=== PATIENT | male | born 1980 | race Caucasian/White ===

== ENCOUNTER 2018-02-25 04:18 | Emergency (ER) | payer MEDICAID, OTHER ==
[~2018-02-25] VITALS: Ht 172.7 cm; Wt 62.6 kg
[~2018-02-25 04:18] MED LIST: ASPI-587 PO; CEPH250T PO; CYCL10TA9 PO; HYDR-229 PO; NAPR-243 PO; NF-ESOM40C PO; PERM60CR10 TOP; TRAM50TA2 PO; TRM50T PO
--- OUTSIDE RECORDS SUMMARY | 2018-02-25 04:27 | XMS REPORT | Continuity of Care Document ---
Author Author Count Includes [facility] Address Unknown Phone Unavailable Allergies Active Description Code Type Severity Reaction Onset Reported/Identified Relationship to Patient Clinical Status Yes No Known Drug Allergies [id number] Drug Allergy Unknown N/A 10/15/2012 Yes cyclobenzaprine 10 mg tablet Drug Allergy N/A N/A 08/23/2014 Medications There is no data. Problems Date Dx Coded Attending Type Code Diagnosis Diagnosed By 12/02/2012 YT WORTHINGTON MD Ot 300.00 12/02/2012 TY WORTHINGTON MD Ot 305.00 12/02/2012 TY WORTHINGTON MD Ot 308.9 12/02/2012 TY WORTHINGTON MD Ot 786.59 09/26/2013 DEE PHD, LANDRY Jones 304.80 SA POLYSUB DEP 09/26/2013 BRITNEY LAND APRN 304.80 SA POLYSUB DEP 09/26/2013 BRITNEY LAND APRN 304.80 SA POLYSUB DEP 09/26/2013 RANULFO EDWARDS 304.80 SA POLYSUB DEP 09/26/2013 BRITNEY LAND APRN 304.80 SA POLYSUB DEP 11/11/2013 CATIE VILLAGRAN MD Ot 719.41 11/11/2013 CATIE VILLAGRAN MD Ot 840.9 11/11/2013 CATIE VILLAGRAN MD Ot E000.0 11/11/2013 CATIE VILLAGRAN MD Ot E849.6 11/11/2013 CATIE VILLAGRAN MD Ot E927.8 11/26/2013 BRITNEY LAND APRN 719.41 PAIN- SHOULDER 11/26/2013 BRITNEY LAND APRN 719.41 PAIN- SHOULDER 11/26/2013 RANULFO EDWARDS 719.41 PAIN- SHOULDER 11/26/2013 BRITNEY LAND APRN 719.41 PAIN- SHOULDER 04/05/2014 BRITNEY LAND APRN 724.5 BACK PAIN, GENERAL 04/05/2014 RANULFO EDWARDS 724.5 BACK PAIN, GENERAL 04/05/2014 EMERY ESPINOZA BRITNEY Hansen 724.5 BACK PAIN, GENERAL 08/08/2014 GEORGE ABEL, RANULFO Sandy 296.90 MOOD DISORDER NOS 08/08/2014 GEORGE ABEL, RANULFO Sandy 300.00 AN ANXIETY UNSPEC 08/08/2014 EMERY ROMANN BRITNEY Hansen 296.90 MOOD DISORDER NOS 08/08/2014 EMERY OLGA BRITNEY Hansen 300.00 AN ANXIETY UNSPEC 08/23/2014 RANULFO EDWARDS Sandy V58.69 HIGH RISK MEDICATION 08/23/2014 EMERY ROMANN BRITNEY Hansen V58.69 HIGH RISK MEDICATION 08/30/2014 GEORGE ABEL RANULFO Sandy 300.02 AN GEN ANXIETY 08/30/2014 EMERY ROMANBRITNEY Branch 300.02 AN GEN ANXIETY Procedures Code [place] [address] PSYCH DIAGNOSTIC EVALUATION 09/26/2013 48868 PSYCH DIAGNOSTIC EVALUATION 09/27/2014 Results There is no data. Encounters ACCT No. Visit Date/Time Discharge Status Pt. Type Provider Facility Loc./Unit Complaint [id number] 10/11/2014 11:40:00 10/11/2014 23:59:59 [facility] Outpatient EMERY ROMANBRITNEY Branch [id number] 09/27/2014 12:56:00 09/27/2014 23:59:59 CLS Outpatient RANULFO EDWARDS Sandy [id number] 04/05/2014 16:33:00 04/05/2014 23:59:59 CLS Outpatient EMERY ROMANBRITNEY Branch [id number] 11/26/2013 16:37:00 11/26/2013 23:59:59 CLS Outpatient EMERY BRITNEY ESPINOZA [id number] 09/26/2013 07:50:00 09/26/2013 23:59:59 CLS Outpatient DEE GARNICA, LANDRY Jones [id number] 01/04/2014 13:35:00 01/04/2014 13:57:00 DIS Emergency [id number] 11/11/2013 04:33:00 11/11/2013 05:02:00 DIS Emergency SPARKLE SHANKAR, CATIE Jones [facility] [id number] 10/12/2013 16:49:00 10/12/2013 17:54:00 DIS Emergency [id number] 08/16/2013 18:25:00 08/16/2013 19:47:00 DIS Emergency [id number] 05/01/2013 19:42:00 05/01/2013 22:12:00 DIS Emergency [id number] 04/17/2013 07:21:00 04/17/2013 23:59:59 CLS Outpatient [id number] 04/16/2013 11:30:00 04/16/2013 20:10:00 DIS Inpatient [id number] 12/02/2012 02:05:00 12/02/2012 13:15:00 DIS Inpatient ANDER SHANKAR, TY Roblero [facility] [id number] 10/15/2012 09:35:00 10/15/2012 10:31:00 DIS Emergency [id number] 01/24/2018 10:30:00 01/24/2018 23:59:59 CLS Out[facility]ITNEY [facility]AND [facility]
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
[2018-02-25 05:45] VITALS: BP 126/98
[2018-02-25] MEDS ORDERED: RX-HYDROCODONE/APAP 5/325 MG #4 TAB PK PO PRN (05:45)
--- NOTE | 2018-02-25 07:13 | Diagnostic Imaging Report ---
INDICATION: Rib pain COMPARISON: Chest 08/16/13 FINDINGS: Single view of the chest and multiple views of the right ribs demonstrate no osseous lesion or fracture. No pneumothorax or effusion is seen. IMPRESSION: Negative chest and right ribs. Dictated by: Dictated on workstation # [id number]
== END 2018-02-25 05:45 | disposition home or self-care (01) ==
LOC: EDUNIT# 04:18 → ER 04:23
DX: S20.211A Contusion of right front wall of thorax, initial encounter (principal); S00.91XA Abrasion of unspecified part of head, initial encounter; J45.909 Unspecified asthma, uncomplicated; K21.9 Gastro-esophageal reflux disease without esophagitis; F41.9 Anxiety disorder, unspecified; R40.2142 Coma scale, eyes open, spontaneous, at arrival to emergency department; R40.2252 Coma scale, best verbal response, oriented, at arrival to emergency department; R40.2362 Coma scale, best motor response, obeys commands, at arrival to emergency department; F17.200 Nicotine dependence, unspecified, uncomplicated; V18.4XXA Pedal cycle driver injured in noncollision transport accident in traffic accident, initial encounter; W22.09XA Striking against other stationary object, initial encounter; Y92.830 Public park as the place of occurrence of the external cause
CPT/HCPCS: 71101; 94664

== ENCOUNTER 2018-04-10 12:03 | Emergency (ER) | payer MEDICAID ==
[~2018-04-10] VITALS: Ht 172.7 cm; Wt 62.8 kg
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
[2018-04-10] MEDS ORDERED: HYDROcodone/APAP 5 MG/325 MG (LORTAB) TAB PO ONE (12:30)
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
[2018-04-10] MEDS ORDERED: AMOX500C2 PO (13:31)
[2018-04-10] MEDS ORDERED: HYDR-4226 PO (13:31)
[2018-04-10 13:39] VITALS: BP 141/85
== END 2018-04-10 13:38 | disposition home or self-care (01) ==
LOC: EDUNIT# 12:03 → ER 12:04
DX: S02.2XXA Fracture of nasal bones, initial encounter for closed fracture (principal); J45.909 Unspecified asthma, uncomplicated; K21.9 Gastro-esophageal reflux disease without esophagitis; F41.9 Anxiety disorder, unspecified; R40.2142 Coma scale, eyes open, spontaneous, at arrival to emergency department; R40.2252 Coma scale, best verbal response, oriented, at arrival to emergency department; R40.2362 Coma scale, best motor response, obeys commands, at arrival to emergency department; Y04.8XXA Assault by other bodily force, initial encounter
CPT/HCPCS: 70450; 70486; 72125

== ENCOUNTER 2019-06-26 11:53 | Emergency (ER) | payer SELFPAY ==
[~2019-06-26] VITALS: Ht 172 cm; Wt 60.0 kg
[~2019-06-26 11:53] MED LIST changes: +AMOX500C2 PO; +HYDR-4226 PO
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
--- NOTE | 2019-06-26 12:43 | Diagnostic Imaging Report ---
INDICATION: Pain and numbness to the right arm. TIME OF EXAM: 12:37 p.m. FINDINGS: Three views of the right shoulder were obtained. Glenohumeral and acromioclavicular alignment is normal. Acromiohumeral space is normal. No fracture or dislocation is seen. IMPRESSION: No acute bony abnormality is detected. Dictated by: Dictated on workstation # [id number]
[2019-06-26] MEDS ORDERED: TRM50T PO (13:15)
[2019-06-26 13:19] VITALS: BP 127/89
== END 2019-06-26 13:19 | disposition home or self-care (01) ==
LOC: EDUNIT# 11:53 → ER 11:54
DX: M25.511 Pain in right shoulder (principal); M54.10 Radiculopathy, site unspecified; J45.909 Unspecified asthma, uncomplicated; K21.9 Gastro-esophageal reflux disease without esophagitis; F41.9 Anxiety disorder, unspecified
CPT/HCPCS: 73030

== ENCOUNTER 2019-09-24 16:32 | Emergency (ER) | payer SELFPAY ==
[~2019-09-24] VITALS: Ht 172.7 cm; Wt 63.5 kg
[2019-09-24] MEDS ORDERED: NS IV 1000 ML 1,000 ML IV SCH (16:45)
[2019-09-24] MEDS ORDERED: ACETAMINOPHEN 500 MG TAB (TYLENOL) PO ONE (16:45)
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
[2019-09-24 16:59] VITALS: BP 124/83
[2019-09-24] MEDS ORDERED: VANCOMYCIN INJECTION 750 MG in NS (IVPB) 100 ML IV ONE (17:00)
[2019-09-24] MEDS ORDERED: cefTRIAXone FOR IV USE 1,000 MG in WATER (STERILE) FOR INJECTION 10 ML IV ONE (17:00)
[2019-09-24] MEDS ORDERED: ONDANSETRON 4 MG/2 ML (SDV) Z0FRAN ONE (17:14)
[2019-09-24] MEDS ORDERED: VANCOMYCIN 1250 MG/NS 250 ML IVPB IV NR ×2 (17:15)
[2019-09-24] MEDS ORDERED: TETANUS,DIPTH,PERTUSS P/F (BOOSTRIX) 0.5 ML VIAL IM ONE (17:15)
--- NOTE | 2019-09-24 17:15 | NUR ---
NS fluid bolus initiated per CC ems, complete. 1000ml intake.
--- NOTE | 2019-09-24 17:17 | Diagnostic Imaging Report ---
INDICATION: Shortness of air COMPARISON: 02/25/2018 FINDINGS: Single frontal view of the chest demonstrates normal heart size and pulmonary vascularity. The lungs are well aerated and clear. No large pleural effusion or pneumothorax is seen. The visualized osseous structures show no acute abnormalities. IMPRESSION: 1. No acute cardiopulmonary process. Dictated by: Dictated on workstation # [id number]
[2019-09-24 17:23] LABS: BASOPHILS % (AUTO) 0 % (0-10); EOSINOPHILS # (AUTO) 0.1 10^3/uL (0.0-0.3); EOSINOPHILS % (AUTO) 1 % (0-10); HEMATOCRIT 47 % (40-54); HEMOGLOBIN 16.4 G/DL (13.3-17.7); LYMPHOCYTES # (AUTO) 2.3 X 10^3 (1.0-4.0); LYMPHOCYTES % (AUTO) 30 % (12-44); MEAN CORPUSCULAR HEMOGLOBIN 32 PG (25-34); MEAN CORPUSCULAR HGB CONC 35 G/DL (32-36); MEAN CORPUSCULAR VOLUME 92 FL (80-99); MEAN PLATELET VOLUME 11.9 FL (7.4-10.4); MONOCYTES # (AUTO) 0.5 X 10^3 (0.0-1.0); MONOCYTES % (AUTO) 7 % (0-12); NEUTROPHILS # (AUTO) 4.7 X 10^3 (1.8-7.8); NEUTROPHILS % (AUTO) 61 % (42-75); PLATELET COUNT 185 10^3/uL (130-400); RED CELL DISTRIBUTION WIDTH 14.9 % (10.0-14.5); WHITE BLOOD COUNT 7.7 10^3/uL (4.3-11.0)
[2019-09-24 17:24] LABS: BILIRUBIN,URINE NEGATIVE (NEGATIVE); CLARITY,URINE CLEAR; COLOR,URINE YELLOW; GLUCOSE, URINE (UA) NEGATIVE (NEGATIVE); KETONES,URINE NEGATIVE (NEGATIVE); LEUKOCYTE ESTERASE ,URINE NEGATIVE (NEGATIVE); NITRITE,URINE NEGATIVE (NEGATIVE); PH,URINE 6.5 (5-9); PROTEIN,URINE NEGATIVE (NEGATIVE)
[2019-09-24] MEDS ORDERED: ONDANSETRON 4 MG/2 ML (SDV) Z0FRAN IVP ONE (17:30)
[2019-09-24 17:33] LABS: BACTERIA,URINE NEGATIVE /HPF
[2019-09-24 17:45] LABS: ALANINE AMINOTRANSFERASE 23 U/L (0-55); ALBUMIN 4.4 GM/DL (3.2-4.5); ALKALINE PHOSPHATASE 107 U/L (40-136); BILIRUBIN,TOTAL 0.3 MG/DL (0.1-1.0); BUN/CREATININE RATIO 13; CALCIUM 9.1 MG/DL (8.5-10.1); CARBON DIOXIDE 19 MMOL/L (21-32); CHLORIDE 107 MMOL/L (98-107); CREATININE SERUM 0.72 MG/DL (0.60-1.30); GFR ESTIMATED > 60; GLUCOSE 85 MG/DL (70-105); POTASSIUM 3.3 MMOL/L (3.6-5.0); SODIUM 143 MMOL/L (135-145); TOTAL PROTEIN 7.1 GM/DL (6.4-8.2)
[2019-09-24 18:00] LABS: FIBRIN DEGRADATION PRODUCTS > 0.27 UG/ML (0.00-0.49)
[2019-09-24] MEDS ORDERED: VANCOMYCIN INJECTION 500 MG in NS (IVPB) 100 ML IV ONE (18:00)
[2019-09-24 18:01] LABS: INR 0.9 (0.8-1.4); PARTIAL THROMBOPLASTIN TIME 24 SEC (24-35); PROTHROMBIN TIME PATIENT 12.3 SEC (12.2-14.7)
--- NOTE | 2019-09-24 18:01 | ED General ---
General Chief Complaint: Respiratory Problems Stated Complaint: FEVER/SOB Nursing Triage Note: Pt arrives via [facility] cart from home with c/o cough, SOA, intermittent fever, N/V/D, et dizziness. Prior to arrival [facility] em[facility] accessed 18g IV to L FA et initiated NS fluid bolus. Upon arrival infected tattoo noted to Mahin abreu. Pt reports he was unable to care for new tattoo d/t being sick. Pt reports fever began on 09/19/19. Pt reports on 09/19/19 he was seen at [facility] et tested negative for influenza, strep, et COVID-19. Pt reports increase in SOA upon exertion. A&OX4. Nursing Sepsis Screen: Possible Severe Sepsis Risk Source of Information: Patient Exam Limitations: No Limitations History of Present Illness Date Seen by Provider: Sep 24, 2019 Time Seen by Provider: 16:45 Initial Comments This 39 year old man presents to the ER with complaints of cough, SOA, pleuritic chest pain, fevers greater than 102 at home, nausea, vomiting, and diarrhea. He has extreme dyspnea with exertion. He started getting ill on September 16. He self-administered a tattoo on his right leg on September 17. He was sent home from work on September 18 due to fever. He was tested for influenza, rapid strep, and C OVID-19 at the [facility] clinic that night. All have returned negative. He continues to struggle with the above symptoms and would like reevaluated. He has not been taking any Tylenol or ibuprofen. He additionally complains of pain along the gingiva of the lower incisors where he has severe periodontal disease and erosion of the gums. This was triggered by the use of a lip ring. Patient also has a laceration on the right hand from punching a glass window. It is no longer bleeding and wound is not gaping. He does not recall when his last tetanus immunization was. He has no pain with flexion and extension of the hand and flexion and extension of the middle finger is intact. Allergies and Home Medications Allergies Coded Allergies: No Known Drug Allergies (Unverified , 04/10/18) Home Medications Tramadol HCl 50 Mg Tablet, 50 MG PO Q6H PRN for PAIN Prescribed by: LORA RAMÍREZ on 06/26/19 3211 Patient Home Medication List Home Medication List Reviewed: Yes Review of Systems Review of Systems Constitutional: see HPI EENTM: see HPI Respiratory: see HPI Cardiovascular: no symptoms reported Gastrointestinal: see HPI Genitourinary: no symptoms reported Musculoskeletal: no symptoms reported Skin: see HPI Psychiatric/Neurological: No Symptoms Reported Hematologic/Lymphatic: No Symptoms Reported Immunological/Allergic: no symptoms reported Past Sltzkmw-Plnpue-Vviuib Hx Past Med/Social Hx: Reviewed Nursing Past Med/Soc Hx Patient Social History Alcohol Use: Denies Use Recreational Drug Use: No Smoking Status: Current Everyday Smoker Type Used: Cigarettes 2nd Hand Smoke Exposure: Yes Recent Foreign Travel: No Contact w/Someone Who Travel: No Recent Infectious Disease Expo: No Immunizations Up To Date Tetanus Booster (TDap): Unknown Seasonal Allergies Seasonal Allergies: Yes Past Medical History Surgeries: No Respiratory: Yes Asthma Cardiac: Yes Neurological: No Reproductive Disorders: No Sexually Transmitted Disease: No HIV/AIDS: No Gastrointestinal: Yes Gastroesophageal Reflux Musculoskeletal: No Endocrine: No Cancer: No Psychosocial: Yes Anxiety Integumentary: No Blood Disorders: No Family Medical History No Pertinent Family Hx Physical Exam-Suspected Sepsis Physical Exam Vital Signs Vital Signs - First Documented 09/24/19 17:30 Temp 36.6 Pulse 107 Resp 21 B/P (MAP) 126/84 (98) Pulse Ox 97 O2 Delivery Room Air Capillary Refill : Less Than 3 Seconds Blood Pressure Mean: 98 Height, Weight, BMI Height: 5'8.00" Weight: 138lbs. 8.0oz. 62.693079px; 21.00 BMI Method:Stated General Appearance: No Apparent Distress, WD/WN HEENT: PERRL/EOMI, TMs Normal, Pharynx Normal, Other (Severe erosion of the gumline from the lower incisors) Neck: Normal Inspection; No JVD Respiratory: Lungs Clear, Normal Breath Sounds, No Accessory Muscle Use, No Respiratory Distress Cardiovascular: No Edema, No Murmur, Tachycardia Gastrointestinal: Normal Bowel Sounds, Non Tender, Soft Extremity: No Pedal Edema, Other (Very tender erythematous borders around the tattoo on the right lower leg. Erythema is blanching.) Neurologic/Psychiatric: Alert, Oriented x3, No Motor/Sensory Deficits, Normal Mood/Affect, offc spec II-XII Norm as Tested Skin: warm/dry, other (See above) Focused Exam Lactate Level 09/24/19 16:45: Lactic Acid Level 4.04*H Lactic Acid Level Laboratory Tests Test 09/24/19 16:45 Lactic Acid Level 4.04 MMOL/L (0.50-2.00) *H Progress/Results/Core Measures Suspected Sepsis Recent Fever Within 48 Hours: Yes Infection Criteria Present: Suspected New Infection New/Unexplained Altered Menta: No Sepsis Screen: Possible Severe Sepsis Risk SIRS Temperature: Pulse: 107 Respiratory Rate: 21 Laboratory Tests 09/24/19 16:45: White Blood Count 7.7 Blood Pressure 126 /84 Mean: 98 09/24/19 16:45: Lactic Acid Level 4.04*H Laboratory Tests 09/24/19 16:45: Creatinine 0.72, INR Comment 0.9, Platelet Count 185, Total Bilirubin 0.3 Results/Orders Lab Results Laboratory Tests Test 09/24/19 16:45 09/24/19 16:50 09/24/19 16:55 Range/Units White Blood Count 7.7 4.3-11.0 10^3/uL Red Blood Count 5.14 4.35-5.85 10^6/uL Hemoglobin 16.4 13.3-17.7 G/DL Hematocrit 47 40-54 % Mean Corpuscular Volume 92 80-99 FL Mean Corpuscular Hemoglobin 32 25-34 PG Mean Corpuscular Hemoglobin Concent 35 32-36 G/DL Red Cell Distribution Width 14.9 H 10.0-14.5 % Platelet Count 185 130-400 10^3/uL Mean Platelet Volume 11.9 H 7.4-10.4 FL Neutrophils (%) (Auto) 61 42-75 % Lymphocytes (%) (Auto) 30 12-44 % Monocytes (%) (Auto) 7 0-12 % Eosinophils (%) (Auto) 1 0-10 % Basophils (%) (Auto) 0 0-10 % Neutrophils # (Auto) 4.7 1.8-7.8 X 10^3 Lymphocytes # (Auto) 2.3 1.0-4.0 X 10^3 Monocytes # (Auto) 0.5 0.0-1.0 X 10^3 Eosinophils # (Auto) 0.1 0.0-0.3 10^3/uL Basophils # (Auto) 0.0 0.0-0.1 10^3/uL Erythrocyte Sedimentation Rate 1 0-15 MM/HR Prothrombin Time 12.3 12.2-14.7 SEC INR Comment 0.9 0.8-1.4 Activated Partial Thromboplast Time 24 24-35 SEC D-Dimer > 0.27 0.00-0.49 UG/ML Sodium Level 143 135-145 MMOL/L Potassium Level 3.3 L 3.6-5.0 MMOL/L Chloride Level 107 98-107 MMOL/L Carbon Dioxide Level 19 L 21-32 MMOL/L Anion Gap 17 H 5-14 MMOL/L Blood Urea Nitrogen 9 7-18 MG/DL Creatinine 0.72 0.60-1.30 MG/DL Estimat Glomerular Filtration Rate > 60 BUN/Creatinine Ratio 13 Glucose Level 85 70-105 MG/DL Lactic Acid Level 4.04 *H 0.50-2.00 MMOL/L Calcium Level 9.1 8.5-10.1 MG/DL Corrected Calcium 8.8 8.5-10.1 MG/DL Total Bilirubin 0.3 0.1-1.0 MG/DL Aspartate Amino Transf (AST/SGOT) 27 5-34 U/L Alanine Aminotransferase (ALT/SGPT) 23 0-55 U/L Alkaline Phosphatase 107 40-136 U/L Lactate Dehydrogenase 241 H 125-220 U/L C-Reactive Protein High Sensitivity 0.19 0.00-0.50 MG/DL Total Protein 7.1 6.4-8.2 GM/DL Albumin 4.4 3.2-4.5 GM/DL Urine Color YELLOW Urine Clarity CLEAR Urine pH 6.5 5-9 Urine Specific Strunk <=1.005 1.016-1.022 Urine Protein NEGATIVE NEGATIVE Urine Glucose (UA) NEGATIVE NEGATIVE Urine Ketones NEGATIVE NEGATIVE Urine Nitrite NEGATIVE NEGATIVE Urine Bilirubin NEGATIVE NEGATIVE Urine Urobilinogen 0.2 < = 1.0 MG/DL Urine Leukocyte Esterase NEGATIVE NEGATIVE Urine RBC (Auto) TRACE-I NEGATIVE Urine RBC NONE /HPF Urine WBC NONE /HPF Urine Squamous Epithelial Cells NONE /HPF Urine Crystals NONE /LPF Urine Bacteria NEGATIVE /HPF Urine Casts NONE /LPF Urine Mucus NEGATIVE /LPF Urine Culture Indicated CULTURE PENDING Group A Streptococcus Screen NEGATIVE NEGATIVE My Orders Orders - ALEXANDRA HODGE MD Cbc With Automated Diff (09/24/19 16:45) Comprehensive Metabolic Panel (09/24/19 16:45) Ferritin (09/24/19 16:45) Fibrin Degradation Products (09/24/19 16:45) Hs C Reactive Protein (09/24/19 16:45) Erythrocyte Sedimentation Rate (09/24/19 16:45) LDH (09/24/19 16:45) Influenza A And B Antigens (09/24/19 16:45) Rapid Strep A Screen (09/24/19 16:45) Acetaminophen Tablet (Tylenol Tablet) (09/24/19 16:45) Blood Culture (09/24/19 16:45) Sputum Culture (09/24/19 16:45) Urinalysis (09/24/19 16:45) Urine Culture (09/24/19 16:45) Protime With Inr (09/24/19 16:45) Partial Thromboplastin Time (09/24/19 16:45) Chest 1 View, Ap/Pa Only (09/24/19 16:45) Vital Signs Adult Sepsis Patie Q15M (09/24/19 16:45) Remove Rings In Anticipation O (09/24/19 16:45) Lactic Acid Analyzer (09/24/19 16:45) Ns Iv 1000 Ml (Sodium Chloride 0.9%) (09/24/19 16:45) Ceftriaxone For Iv Use (Rocephin For I (09/24/19 17:00) Vancomycin Injection (Vancomycin Injecti (09/24/19 17:00) Vancomycin Injection (Vancomycin Injecti (09/24/19 18:00) Dipht,Pertuss(Acell),Tet Adult (Boostrix (09/24/19 17:15) Vancomycin Injection (Vancomycin Injecti (09/24/19 17:15) Ondansetron Injection (Zofran Injectio (09/24/19 17:30) Ondansetron Injection (Zofran Injectio (09/24/19 17:14) Medications Given in ED Current Medications Medications Dose Ordered Sig/Mayuri Route Start Time Stop Time Status Last Admin Dose Admin Acetaminophen 1,000 mg ONCE ONCE PO 09/24/19 16:45 09/24/19 16:50 DC 09/24/19 17:03 1,000 MG Ceftriaxone Sodium 1000 mg/ Sterile Water 10 ml @ 200 mls/hr ONCE ONCE IV 09/24/19 17:00 09/24/19 17:02 DC 09/24/19 17:21 200 MLS/HR Diphtheria/ Tetanus/Acell Pertussis 0.5 ml ONCE ONCE IM 09/24/19 17:15 09/24/19 17:16 DC 09/24/19 17:46 0.5 ML Ondansetron HCl 8 mg ONCE ONCE IVP 09/24/19 17:30 09/24/19 17:31 DC 09/24/19 17:21 8 MG Vital Signs/I&O 09/24/19 17:30 Temp 36.6 Pulse 107 Resp 21 B/P (MAP) 126/84 (98) Pulse Ox 97 O2 Delivery Room Air Capillary Refill : Less Than 3 Seconds Blood Pressure Mean: 98 Progress Note : Progress Note Patient was afebrile in the emergency room. He was tachycardic and had fever at home. His lactic acid returned greater than 4. However, his CRP and WBC were normal suggesting his lactic acid was secondary to vomiting and diarrhea rather than infection. He did receive doses of Rocephin and vancomycin. Antibiotic therapy for his cellulitis will be continued as an outpatient with Bactrim. He received 2 L of IV fluid and voided twice while in the ER. He was treated with Tylenol and Zofran for symptoms. Laceration of the right hand was cleaned with chlorhexidine wipes. A tetanus booster was administered. Influenza screen was pending at the time of dismissal. Diagnostic Imaging Diagonstic Imaging: Xray Plain Films/CT/US/NM/MRI: chest Comments Chest x-ray viewed by me and report reviewed. See report below: NAME: [facility] REC#: [id number] PT STATUS: REG ER : 1980 PHYSICIAN: ALEXANDRA HODGE MD ADMIT DATE: 09/24/19/ER Draft Date of Exam:09/24/19 CHEST 1 VIEW, AP/PA ONLY INDICATION: Shortness of air COMPARISON: 02/25/2018 FINDINGS: Single frontal view of the chest demonstrates normal heart size and pulmonary vascularity. The lungs are well aerated and clear. No large pleural effusion or pneumothorax is seen. The visualized osseous structures show no acute abnormalities. IMPRESSION: 1. No acute cardiopulmonary process. Dictated on workstation # [id number] Dict: 09/24/19 1713 Trans: 09/24/19 1717 [facility] [id number] Interpreted by: ERIS ORTIZ MD Departure Impression Primary Impression: Dyspnea Qualified Codes: R06.02 - Shortness of breath Additional Impressions: Lactic acidosis Cellulitis of right leg Nausea vomiting and diarrhea Pleuritic chest pain Laceration of right hand Qualified Codes: S61.411A - Laceration without foreign body of right hand, initial encounter Periodontal disease Disposition: HOME, SELF-CARE Condition: Improved Departure-Patient Inst. Decision time for Depature: 18:24 Referrals: [facility] [place] (PCP) Primary Care Physician NO,LOCAL PHYSICIAN (Family) Primary Care Physician Patient Instructions: COVID19, Cellulitis (Skin Infection), Adult (DC) Add. Discharge Instructions: Start with a clear liquid diet and gradually advance your diet as tolerated. Start with small quantities of bland food. Avoid dairy products or fatty or greasy foods until GI symptoms have resolved for at least 48 hours. Use Zofran (ondansetron) as prescribed for nausea and vomiting. Complete your antibiotics as prescribed. You may use Tylenol (acetaminophen) up to 1000 mg every 6 hours as needed for pain or fever. Do not return to work until your symptoms have resolved and you are free of fever without Tylenol for at least 72 hours. Return to the emergency room if you have worsening symptoms despite following these treatment measures. Follow-up with a dentist as soon as possible. All discharge instructions reviewed with patient and/or family. Voiced understanding. Scripts Sulfamethoxazole/Trimethoprim (Bactrim Ds Tablet) 1 Each Tablet 1 EACH PO BID, #20 TAB Prov: ALEXANDRA HODGE MD 09/24/19 Ondansetron (Ondansetron Odt) 4 Mg Tab.rapdis 4 MG SL Q4H PRN for NAUSEA/VOMITING, #10 TAB Prov: ALEXANDRA HODGE MD 09/24/19 ALEXANDRA HODGE MD Sep 24, 2019 18:01
[2019-09-24 18:12] VITALS: BP 111/82
[2019-09-24 18:14] LABS: ERYTHROCYTE SEDIMENTATION RATE 1 MM/HR (0-15)
[2019-09-24] MEDS ORDERED: SULF1TAB35 PO (18:33)
[2019-09-24] MEDS ORDERED: ONDA4TAB11 SL (18:33)
[2019-09-24 19:00] VITALS: BP 119/84
== END 2019-09-24 19:00 | disposition home or self-care (01) ==
LOC: ER 16:32 → EDUNIT# 16:32 → ER 19:00
DX: R06.00 Dyspnea, unspecified (principal); E87.2 Acidosis; L03.115 Cellulitis of right lower limb; R11.2 Nausea with vomiting, unspecified; R19.7 Diarrhea, unspecified; R07.81 Pleurodynia; S61.411A Laceration without foreign body of right hand, initial encounter; K05.6 Periodontal disease, unspecified; W22.09XA Striking against other stationary object, initial encounter; Z23 Encounter for immunization
CPT/HCPCS: 36415; 71045; 80053; 81000; 82728; 83605; 83615; 85025; 85379; 85610; 85652; 85730; 86141; 87040; 87088; 87430; 87804; 90715

== ENCOUNTER 2020-02-15 16:10 | Emergency (ER) | payer SELFPAY ==
[~2020-02-15] VITALS: Ht 172 cm; Wt 65.0 kg
[~2020-02-15 16:10] MED LIST changes: +ONDA4TAB11 SL; +SULF1TAB35 PO
[2020-02-15 16:30] VITALS: BP 129/98
--- NOTE | 2020-02-15 16:33 | ED Integumentary General ---
General Stated Complaint: ANKLE LAC Source: patient Exam Limitations: no limitations History of Present Illness Date Seen by Provider: Feb 15, 2020 Time Seen by Provider: 16:30 Initial Comments To ER with laceration over the left ankle. He was working with a piece of glass when he dropped it, and the glass remained intact but it did cut the anteromedial left ankle. He thought it was fine but he noticed some spurting of blood. Tetanus is up-to-date. Timing/Duration: just prior to arrival Severity: mild Associated Symptoms: denies symptoms Allergies and Home Medications Allergies Coded Allergies: No Known Drug Allergies (Unverified , 04/10/18) Home Medications Ondansetron 4 Mg Tab.rapdis, 4 MG SL Q4H PRN for NAUSEA/VOMITING Prescribed by: ALEXANDRA HIGGINS on 09/24/191832 Sulfamethoxazole/Trimethoprim 1 Each Tablet, 1 EACH PO BID Prescribed by: ALEXANDRA HIGGINS on 09/24/191832 Tramadol HCl 50 Mg Tablet, 50 MG PO Q6H PRN for PAIN Prescribed by: LORA RAMÍREZ on 06/26/19 1315 Patient Home Medication List Home Medication List Reviewed: Yes Review of Systems Review of Systems Constitutional: see HPI EENTM: see HPI Respiratory: no symptoms reported Cardiovascular: no symptoms reported Genitourinary: no symptoms reported Musculoskeletal: no symptoms reported Skin: see HPI Psychiatric/Neurological: No Symptoms Reported Endocrine: No Symptoms Reported Past Rxqwdtg-Zpmnxq-Vkyqtd Hx Patient Social History Type Used: Cigarettes 2nd Hand Smoke Exposure: Yes Recent Foreign Travel: No Contact w/Someone Who Travel: No Immunizations Up To Date Tetanus Booster (TDap): Unknown Seasonal Allergies Seasonal Allergies: Yes Past Medical History Surgeries: No Respiratory: Yes Asthma Cardiac: Yes Neurological: No Reproductive Disorders: No Sexually Transmitted Disease: No HIV/AIDS: No Gastrointestinal: Yes Gastroesophageal Reflux Musculoskeletal: No Endocrine: No Cancer: No Psychosocial: Yes Anxiety Integumentary: No Blood Disorders: No Family Medical History No Pertinent Family Hx Physical Exam Vital Signs Vital Signs - First Documented 02/15/20 16:30 Temp 36.8 Pulse 100 Resp 18 B/P (MAP) 129/98 (108) Pulse Ox 99 O2 Delivery Room Air Capillary Refill : General Appearance: WD/WN, no apparent distress HEENT: PERRL/EOMI, normal ENT inspection Respiratory: no respiratory distress, no accessory muscle use Neurologic/Psychiatric: alert, normal mood/affect, oriented x 3 Skin: normal color, warm/dry Skin Problem Character: other (there is a less than 0.5 cm laceration/puncture wound. This is to the anteromedial lower leg just anterior to the medial malleolus directly overlying one of the superficial veins. There is no active bleeding. However because of the spurting of blood that he noticed we will r insed this out, close it with a simple interrupted suture or 2 for the sake of hemostasis.) Progress/Results/Core Measures Results/Orders Vital Signs/I&O 02/15/20 16:30 Temp 36.8 Pulse 100 Resp 18 B/P (MAP) 129/98 (108) Pulse Ox 99 O2 Delivery Room Air Departure Communication (Admissions) 2190-anesthetized with 0.7 mL of 1% lidocaine without epinephrine scrubbed with flexing/saline solution then closed with 2 simple interrupted sutures size 5-0 Prolene. Impression Primary Impression: Leg laceration Qualified Codes: S81.812A - Laceration without foreign body, left lower leg, initial encounter Disposition: 01 HOME, SELF-CARE Condition: Stable Departure-Patient Inst. Decision time for Depature: 16:32 Referrals: [facility] (PCP) Primary Care Physician NO,LOCAL PHYSICIAN (Family) Primary Care Physician Patient Instructions: Laceration Repair With Stitches (DC) Add. Discharge Instructions: 1. Return to ER to have the stitches out in about 7 days. You can shower leading water run over the started tonight. Return to ER for any sign of infection such as redness or swelling. JACKIE PACE TELEGRAPHIC INSTRUMENT SUPERVISOR Feb 15, 2020 16:33
== END 2020-02-15 17:02 | disposition home or self-care (01) ==
LOC: EDUNIT# 16:10 → ER 16:14
DX: S81.812A Laceration without foreign body, left lower leg, initial encounter (principal); Z77.22 Contact with and (suspected) exposure to environmental tobacco smoke (acute) (chronic); W25.XXXA Contact with sharp glass, initial encounter
CPT/HCPCS: 12031

== ENCOUNTER → 2021-10-22 | Outpatient (CLI) | payer MEDICAID ==
[~2021-10-22] MED LIST changes: +MELO15TA14 PO; +RT-ALBUTEROL SULF 2.5 MG/3 ML PRE-MIX VIAL INH ONE; -SULF1TAB35 PO; +SULF1TAB38 PO; +TIZA-186 PO; +TRZ50T PO
== END ==
LOC: RT 10:45
PROVIDERS: ATTEND Nurse Practitioner
DX: J40 Bronchitis, not specified as acute or chronic (principal)
CPT/HCPCS: 94060; 94726; 94729

== ENCOUNTER 2021-10-28 09:32 | Outpatient (CLI) | payer MEDICAID ==
[~2021-10-28] VITALS: Ht 172.7 cm; Wt 65.9 kg
[~2021-10-28 09:32] MED LIST changes: -MELO15TA14 PO; -RT-ALBUTEROL SULF 2.5 MG/3 ML PRE-MIX VIAL INH ONE; -TIZA-186 PO; -TRZ50T PO
[2021-10-28] MEDS ORDERED: TRZ50T PO (09:58)
[2021-10-28] MEDS ORDERED: TIZA-186 PO (09:58)
[2021-10-28] MEDS ORDERED: MELO15TA14 PO (09:58)
[2021-10-29] MEDS ORDERED: HYDR-3817 PO (10:33)
== END 2021-10-28 12:33 | disposition home or self-care (01) ==
LOC: PREOP 09:32
PROVIDERS: ATTEND Surgery
DX: Z01.818 Encounter for other preprocedural examination (principal)

== ENCOUNTER 2021-10-29 10:22 | Day surgery (SDC) | payer MEDICAID ==
[~2021-10-29] VITALS: Ht 172.7 cm; Wt 65.9 kg
[2021-10-29] VITALS (10 sets, daily range): BP systolic 134–156; BP diastolic 93–106
[~2021-10-29 10:22] MED LIST changes: +MELO15TA14 PO; +TIZA-186 PO; +TRZ50T PO
[2021-10-29] MEDS ORDERED: HYDR-3817 PO (10:33)
--- NOTE | 2021-10-29 10:34 | Discharge Inst-Surgical ---
D/C Lap Instructions-KIDO Reconcile Patient Problems Problems Reviewed?: Yes New, Converted, or Re-Newed RX: RX on Chart Follow Up Appt in 2 weeks Activity as tolerated No driving for 24 hours No driving while on pain medications Incentive Spirometry use every 2 hours while awake Regular Diet Symptoms to Report: Fever over 101 degree F, Nausea/Vomiting Infection Signs and Symptoms to report: Increased redness, Foul odor of wound, Increased drainage Bathing instructions: May shower Operative Area Clean/Dry; Keep incision clean/dry If any problems/questions: Contact your physician or go to Emergency Room LUIGI SCHNEIDER APRN October 29, 2021 10:34
--- NOTE | 2021-10-29 10:35 | Progress Note-Pre Operative ---
Pre-Operative Progress Note H&P Reviewed The H&P was reviewed, patient examined and no changes noted. Date Seen by Provider: October 29, 2021 Time Seen by Provider: 10:35 Date H&P Reviewed: October 29, 2021 Time H&P Reviewed: 10:30 Pre-Operative Diagnosis: Right inguinal hernia LUIGI SCHNEIDER APRN October 29, 2021 10:35
[2021-10-29] MEDS ORDERED: ONDANSETRON 4 MG/2 ML (SDV) Z0FRAN IVP PRN ×2 (10:45→15:30)
[2021-10-29] MEDS ORDERED: HYDROcodone/APAP 5 MG/325 MG (LORTAB) TAB PO ONE (10:45)
[2021-10-29] MEDS ORDERED: morphine INJ 10 MG/ML 1ML (SYR OR VIAL) IVP PRN (10:45)
[2021-10-29] MEDS ORDERED: ACETAMINOPHEN 325 MG TABLET PO PRN (10:45)
[2021-10-29] MEDS: LACTATED RINGERS 1,000 ML IV PRN ×2 (11:10→14:54)
[2021-10-29] MEDS ORDERED: ceFAZolin INJECTION 1,000 MG VIAL IV ONE (12:00)
[2021-10-29] MEDS ORDERED: ceFAZolin INJECTION 1,000 MG ONE (12:38)
[2021-10-29] MEDS ORDERED: LIDOCAINE/EPI 1%-1:200,000 (XYLOCAINE) 30 ML VIAL ONE (12:47)
[2021-10-29] MEDS ORDERED: fentaNYL INJ 100 MCG/2 ML AMP ONE (13:00)
[2021-10-29] MEDS ORDERED: ONDANSETRON 4 MG/2 ML (SDV) Z0FRAN ONE (13:00)
[2021-10-29] MEDS ORDERED: SEVOFLURANE (ULTANE) 15 ML INHAL SOLN ONE ×2 (13:00→15:25)
[2021-10-29] MEDS ORDERED: proPOfol 200 MG/20 ML (DIPRIVAN) VIAL IV ONE (13:00)
[2021-10-29] MEDS ORDERED: MIDAZOLAM 2 MG/2 ML (VERSED) VIAL ONE (13:00)
[2021-10-29] MEDS ORDERED: LIDOCAINE PF 2% 5 ML (XYLOCAINE) VIAL ONE (13:00)
[2021-10-29] MEDS ORDERED: HYDROmorphone 2 MG/ML VIAL (DILAUDID) ONE (14:35)
--- NOTE | 2021-10-29 15:08 | Progress Note-Post Operative ---
Post-Operative Progess Note Surgeon (s)/Education Research Analyst (s) Surgeon SID MORALES MD Education Research Analyst: [employer] Pre-Operative Diagnosis Right inguinal hernia Post-Operative Diagnosis right indirect ing hernia. Procedure & Operative Findings Date of Procedure 10/29/21 Procedure Performed/Findings laparoscopic right ing hernia. Anesthesia Type get Estimated Blood Loss Estimated blood loss (mL): minimal Specimens/Packing Specimens Removed none SID MORALES MD October 29, 2021 15:08
[2021-10-29] MEDS ORDERED: NEOSTIGMINE 3 MG/3 ML VIAL ONE (15:17)
[2021-10-29] MEDS ORDERED: GLYCOPYRROLATE 0.2 MG/ML (ROBINUL) 2 ML VIAL ONE (15:17)
[2021-10-29] MEDS ORDERED: ROCURONIUM 50 MG/5 ML (ZEMURON) VIAL IV ONE (15:25)
[2021-10-29] MEDS ORDERED: morphine INJ 10 MG/ML 1ML (SYR OR VIAL) ONE (15:30)
[2021-10-29] MEDS ORDERED: MEPERIDINE (DEMEROL) INJ 50 MG/ML IVP ONE (15:30)
[2021-10-29] MEDS ORDERED: morphine INJ 10 MG/ML 1ML (SYR OR VIAL) IVP ONE (15:30)
[2021-10-29] MEDS ORDERED: HYDROmorphone 2 MG/ML VIAL (DILAUDID) IV ONE (15:30)
[2021-10-29] MEDS ORDERED: PROMETHAZINE INJ 25 MG/ML (PHENERGAN) AMP IVP ONE (15:30)
--- NOTE | 2021-10-29 15:41 | Anesthesia-General Post-Op ---
General Patient Condition Mental Status/LOC: Same as Preop Cardiovascular: Satisfactory Nausea/Vomiting: Absent Respiratory: Satisfactory Pain: Controlled Complications: Absent Post Op Complications Complications None Follow Up Care/Instructions Patient Instructions None needed. Anesthesia/Patient Condition Patient Condition Patient is doing well, no complaints, stable vital signs, no apparent adverse anesthesia problems. No complications reported per nursing. USHA PALACIOS CRNA October 29, 2021 15:41
[2021-10-29] MEDS ORDERED: HYDROcodone/APAP 5 MG/325 MG (LORTAB) TAB ONE (16:23)
--- NOTE | 2021-10-30 01:41 | OPERATIVE REPORT ---
DATE OF SERVICE: 10/29/2021 ATTENDING PRIMARY SLIVER MACHINE OPERATOR: Jazzy Curry APRN PREOPERATIVE DIAGNOSIS: Symptomatic reducible right inguinal hernia. POSTOPERATIVE DIAGNOSIS: Symptomatic reducible right indirect inguinal hernia. PROCEDURE: Laparoscopic right inguinal hernia repair with mesh. SURGEON: Dr. Morales. ANESTHESIA: General endotracheal. ESTIMATED BLOOD LOSS: Minimal. FINDINGS: Symptomatic reducible right indirect inguinal hernia. DISPOSITION: The patient tolerated the procedure well. INDICATIONS: The patient is a 41-year-old male referred over to us for pain and swelling in the right inguinal region. He was seen by his complex human resources manager where he was found to have a reducible right inguinal hernia, which was painful to palpation. He states that this hurts and has been around for several years, but; however, it has gotten worse, especially after doing heavy lifting or standing for long periods of time. He is otherwise eating well and having normal bowel movements. DESCRIPTION OF PROCEDURE: The patient was brought to the operating room, laid supine on the table. After adequate IV pain and sedative medications and general endotracheal intubation, the abdomen was prepped and draped in standard surgical fashion. A 0.5% Marcaine with epinephrine was used to anesthetize the infraumbilical rim and a transverse skin incision made using a 15 blade. The abdominal wall was then retracted anteriorly using a sharp towel clamp and a Veress needle inserted with low opening pressure of 0 mmHg. Abdomen was insufflated to 15 mmHg pressure. The Veress needle removed and a 5 mm XL trocar placed followed by 5 mm 45-degree angle laparoscope visualized in the peritoneal cavity. A 4-quadrant abdominal exploration was performed. There was a small right indirect inguinal hernia as well as a cord lipoma. There was no left inguinal hernia component. Under direct visualization, we did proceed to place bilateral 5 mm ports under direct visualization after the skin and peritoneal lining were anesthetized using 0.5% Marcaine with epinephrine and transverse skin incision was made using a 15 blade. The patient was then placed in Trendelenburg position. The peritoneal lining was then opened starting laterally towards the conjoined tendon and inguinal ligament. We then proceeded medially until Mckay's ligament was identified. We then proceeded with the inferior dissection encompassing the hernia sac as well as the cord lipoma. The cord and its surrounding structures identified and spared throughout the process. Good hemostasis was observed. A medium size 3DMax polypropylene mesh was then placed into the defect and tacked to Mckay's ligament medially with absorbable tacks into the inguinal ligament laterally. The peritoneal lining was then placed over the mesh and a few absorbable tacks were placed to hold this in place for visualization and good hemostasis. Good hemostasis was observed. The 10 mm port site fascia and peritoneum were then closed under direct visualization using a Tony-Philomena device and 0 Vicryl suture. The abdomen was desufflated. The remaining ports were removed. All skin incisions were closed using 4-0 Monocryl running subcuticular sutures. Wounds were then cleaned and covered with dermabond. Start IV normal pain medication as well as a clear liquid diet. Once he is tolerating clears with good pain control with oral pain medications, ambulating well, we will discharge him home where he will be instructed to do no heavy lifting or exertion for the next two weeks. Job ID: [id number] DocumentID: [id number] Dictated Date: 10/29/2021 15:16:59 Electric Mule Operator Date: 10/30/2021 00:59:40 Dictated By: SID MORALES MD MTDD
== END 2021-10-29 17:41 ==
LOC: SDC 10:22
PROVIDERS: ATTEND Surgery
DX: K40.90 Unilateral inguinal hernia, without obstruction or gangrene, not specified as recurrent (principal); F17.210 Nicotine dependence, cigarettes, uncomplicated
CPT/HCPCS: 49650; 87081; 94664; C1781